=== PATIENT | female | born 1940 | race Caucasian/White ===

== ENCOUNTER 2020-04-14 14:21 | Outpatient (CLI) | payer MEDICARE, OTHER ==
--- NOTE | 2020-04-14 15:03 | ULT ---
EXAM: Left lower extremity venous Doppler HISTORY: Reported history of chronic DVT. Patient was told she was positive for DVT in October 2019. COMPARISON: None available. FINDINGS: Grayscale, color-flow, Doppler evaluation, spectral analysis of the left lower extremity venous struc tures is performed with 2-D imaging. The left common femoral, superficial femoral, popliteal, posterior tibial, proximal greater saphenous and profunda femoral veins are imaged. There is normal luminal compressibility, flow, and augmentation in the visualized deep venous structu res of the left lower extremity. IMPRESSION: No evidence of a deep vein thrombosis in the visualized deep venous structures left lower extremity.
== END 2020-04-14 14:22 | disposition home or self-care (01) ==
LOC: BICULT 14:21
PROVIDERS: ATTEND Family Medicine
DX: M79.605 Pain in left leg (principal); Q61.3 Polycystic kidney, unspecified

== ENCOUNTER 2020-07-03 08:58 | Outpatient (CLI) | payer MEDICARE | END 2020-07-03 08:59 | disposition home or self-care (01) | LOC: BICCT 08:58 | PROVIDERS: ATTEND Urology | DX: Q61.3 Polycystic kidney, unspecified (principal); N13.5 Crossing vessel and stricture of ureter without hydronephrosis; N20.0 Calculus of kidney; R82.71 Bacteriuria; K43.9 Ventral hernia without obstruction or gangrene; K57.30 Diverticulosis of large intestine without perforation or abscess without bleeding; Z98.890 Other specified postprocedural states | CPT/HCPCS: 36415; 74176; 80048 ==

== ENCOUNTER 2020-10-16 08:30 | Outpatient (CLI) | payer MEDICARE, OTHER | END 2020-10-16 08:31 | disposition home or self-care (01) | LOC: BICULT 08:30 | PROVIDERS: ATTEND Urology | DX: N28.1 Cyst of kidney, acquired (principal); Q61.3 Polycystic kidney, unspecified; N13.5 Crossing vessel and stricture of ureter without hydronephrosis | CPT/HCPCS: 74018; 76770 ==

== ENCOUNTER 2020-12-25 09:29 | Outpatient (CLI) | payer MEDICARE | END 2020-12-25 09:30 | disposition home or self-care (01) | LOC: BICMAMMO 09:29 | PROVIDERS: ATTEND Family Medicine | DX: Z12.31 Encounter for screening mammogram for malignant neoplasm of breast (principal); Z80.3 Family history of malignant neoplasm of breast | CPT/HCPCS: 77063; 77067 ==

== ENCOUNTER 2021-09-21 09:30 | Inpatient (IN) | payer MEDICARE ==
[2021-09-21 10:39] LABS: Hemoglobin 14.1 g/dL (12.0-16.0); Mean Corpuscular HGB CONC 31.7 g/dL (32.0-36.0); Mean Corpuscular Volume 97.9 fL (78.0-98.0); Mean Platelet Volume 9.3 fL (7.4-10.4); Platelet Count 164 thou/uL (130-400); RBC Distribution Width 12.3 % (11.5-14.5); Red Blood Cell (RBC) Count 4.54 mill/uL (4.20-5.40); White Blood Cell (WBC) Count 18.5 thou/uL (4.8-10.8)
[2021-09-21 10:55] LABS: ALT (SGPT) 41 U/L (8-55); AST (SGOT) 82 U/L (5-34); Albumin 3.6 g/dL (3.4-4.8); Alkaline Phosphatase 59 U/L (40-110); Anion Gap 15 mmol/L (10-20); BUN (Urea Nitrogen) 39 mg/dL (9.8-20.1); Bilirubin, Total 0.9 mg/dL (0.2-1.2); Calc. Creatinine Clearance 0 mL/min (70-130); Calcium 9.2 mg/dL (7.8-10.44); Carbon Dioxide 23 mmol/L (23-31); Chloride 104 mmol/L (98-107); Globulin 3.6 g/dL (2.4-3.5); Glucose 165 mg/dL (83-110); Potassium 4.4 mmol/L (3.5-5.1); Protein, Total 7.2 g/dL (5.8-8.1); Sodium 138 mmol/L (136-145)
[2021-09-21 11:03] LABS: Band 57 % (5-11); Lymphocytes 3 % (21-51); MDiff Complete? YES; Metamyelocyte 3 % (0-0); Monocytes 3 % (0-10); Neutrophil 34 % (42-75); Platelet Morphology Comment Appears Adequate; Polychromasia SLIGHT = 2-3 cells (100X) (0-2/hpf); Reflex for Review?? YES
[2021-09-21] MEDS ORDERED: cefTRIAXone\\ROCEPHIN 2 GM VIAL ONE (13:06)
[2021-09-21] MEDS ORDERED: Vancomycin 1.5 GRAM/300 ML BAG 1.5 GM in Premix Bag 1 BAG IVPB SCH (13:30)
[2021-09-21 13:41] LABS: Bacteria/HPF 4+ HPF (None Seen); Bilirubin Negative (Negative); Blood, Urine 3+ (Negative); Clarity Turbid (Clear); Glucose, Urine (Dipstick) Normal (Negative); Ketone, Urine Negative (Negative); Leukocyte 250 Leu/uL (Negative); Nitrite 2+ (Negative); Protein, Urine (Dipstick) 70 mg/dL (Neg-Trace); Specific Gravity, Urine 1.022 (1.002-1.036); Squamous Epithelial 0-3 HPF (0-3); Urobilinogen Normal mg/dL (Less than 2); WBC/HPF 21-50 HPF (0-3); pH, Urine 5.5 (5.0-9.0)
[2021-09-21 14:02] LABS: Troponin I 3.857 ng/mL (< 0.028)
[2021-09-21] MEDS ORDERED: Nitroglycerin 0.4 MG TAB (25 Tab Bottle) SL PRN (14:16)
[2021-09-21] MEDS ORDERED: Aspirin Chewable 81 MG TAB ONE (14:22)
[2021-09-21] MEDS ORDERED: Calcium Carbonate 500 MG ChewTAB PO PRN (14:23)
[2021-09-21] MEDS ORDERED: Bisacodyl 10 MG SUPP PR PRN (14:23)
[2021-09-21] MEDS ORDERED: Senokot S 8.6-50 MG TAB PO PRN (14:23)
[2021-09-21] MEDS ORDERED: Ondansetron PF 4 MG/2 ML Vial IVP PRN (14:23)
[2021-09-21] MEDS ORDERED: Ondansetron ODT 4 MG TAB PO PRN (14:23)
[2021-09-21] MEDS ORDERED: Sodium Chloride 0.9% 1,000 ML IV SCH (14:30)
[2021-09-21] MEDS ORDERED: Vancomycin 1 GM in Premix Bag 1 BAG IVPB SCH (14:30)
[2021-09-21 15:35] LABS: Critical Call Chem Troponin I RESULT DECREASING
[2021-09-21 15:55] LABS: CKMB 10.6 ng/mL (0-6.6)
[2021-09-21] MEDS ORDERED: Enoxaparin Sodium 80 MG/0.8 ML SYRINGE ONE (15:59)
[2021-09-21 16:40] LABS: SARS-CoV-2 NAA Rapid Test Not Detected (NotDetected)
[2021-09-21] MEDS: Cefepime 1 GM in Sodium Chloride 0.9% 100 ML IVPB SCH (17:59)
[2021-09-21 18:16] LABS: Critical Call Chem Troponin I RESULT DECREASING
[2021-09-21] MEDS: Enoxaparin Sodium 30 MG/0.3 ML SYRINGE SC SCH (20:25)
[2021-09-21] MEDS: guaiFENesin ER 600 MG TAB PO SCH (20:25)
[2021-09-21] MEDS ORDERED: Enoxaparin Sodium 40 MG/0.4 ML SYRINGE SC SCH (21:00)
[2021-09-22] MEDS: Cefepime 1 GM in Sodium Chloride 0.9% 100 ML IVPB SCH ×2 (04:12→16:16)
[2021-09-22 04:22] LABS: ALT (SGPT) 42 U/L (8-55); AST (SGOT) 75 U/L (5-34); Alkaline Phosphatase 58 U/L (40-110); Anion Gap 12 mmol/L (10-20); BUN (Urea Nitrogen) 39 mg/dL (9.8-20.1); Bilirubin, Total 0.3 mg/dL (0.2-1.2); Calc. Creatinine Clearance 44 mL/min (70-130); Calcium 8.7 mg/dL (7.8-10.44); Carbon Dioxide 22 mmol/L (23-31); Chloride 108 mmol/L (98-107); Globulin 3.1 g/dL (2.4-3.5); Glucose 125 mg/dL (83-110); Potassium 4.3 mmol/L (3.5-5.1); Protein, Total 6.1 g/dL (5.8-8.1); Sodium 138 mmol/L (136-145)
[2021-09-22 04:57] LABS: Band 51 % (5-11); Hemoglobin 13.2 g/dL (12.0-16.0); Lymphocytes 2 % (21-51); MDiff Complete? YES; Mean Corpuscular HGB CONC 31.7 g/dL (32.0-36.0); Mean Corpuscular Hemoglobin 31.4 pg (27.0-31.0); Mean Platelet Volume 9.6 fL (7.4-10.4); Monocytes 5 % (0-10); Neutrophil 42 % (42-75); Platelet Count 147 thou/uL (130-400); Platelet Morphology Comment Appears Adequate; RBC Distribution Width 12.6 % (11.5-14.5); RBC Morphology Normal; Red Blood Cell (RBC) Count 4.21 mill/uL (4.20-5.40); White Blood Cell (WBC) Count 15.6 thou/uL (4.8-10.8)
[2021-09-22 06:15] LABS: Legionella Urinary Ag Negative (Negative); Strep pneumo Urine Ag NEGATIVE (NEGATIVE)
[2021-09-22] MEDS: Aspirin 81 mg Enteric Coated Tablet PO SCH (08:56)
[2021-09-22] MEDS: guaiFENesin ER 600 MG TAB PO SCH ×2 (08:56→20:19)
[2021-09-22] MEDS: Famotidine 20 MG TAB PO SCH (08:56)
[2021-09-22] MEDS: Saccharomyces boulardii 250 MG CAP PO SCH (08:56)
[2021-09-22] MEDS ORDERED: Aspirin 325 mg Enteric Coated Tablet PO SCH (09:00)
[2021-09-22] MEDS ORDERED: Vancomycin 1 GM in Premix Bag 1 BAG IVPB SCH (15:00)
[2021-09-22] MEDS: Atorvastatin Calcium 40 MG TAB PO SCH (20:19)
[2021-09-22] MEDS: Enoxaparin Sodium 30 MG/0.3 ML SYRINGE SC SCH (20:19)
[2021-09-22] MEDS: Acetaminophen 325 MG TAB PO PRN (20:19)
[2021-09-23] MEDS: Cefepime 1 GM in Sodium Chloride 0.9% 100 ML IVPB SCH (03:50)
[2021-09-23 04:22] LABS: #Eosinphils 0.2 thou/uL (0.0-0.7); #Lymphocytes 1.1 thou/uL (1.20-3.40); #Monocytes 0.8 thou/uL (0.11-0.59); #Neutrophils 8.6 thou/uL (1.40-6.50); %Lymphocytes 10.5 % (21.0-51.0); %Monocytes 7.2 % (0.0-10.0); %Neutrophils 80.3 % (42.0-75.0); Hemoglobin 13.1 g/dL (12.0-16.0); Mean Corpuscular HGB CONC 32.2 g/dL (32.0-36.0); Mean Corpuscular Hemoglobin 30.6 pg (27.0-31.0); Platelet Count 129 thou/uL (130-400); RBC Distribution Width 12.6 % (11.5-14.5); Red Blood Cell (RBC) Count 4.27 mill/uL (4.20-5.40); White Blood Cell (WBC) Count 10.7 thou/uL (4.8-10.8)
[2021-09-23 04:44] LABS: ALT (SGPT) 160 U/L (8-55); AST (SGOT) 165 U/L (5-34); Albumin 2.9 g/dL (3.4-4.8); Alkaline Phosphatase 67 U/L (40-110); Anion Gap 13 mmol/L (10-20); BUN (Urea Nitrogen) 31 mg/dL (9.8-20.1); Bilirubin, Total 0.4 mg/dL (0.2-1.2); Calc. Creatinine Clearance 52 mL/min (70-130); Calcium 8.5 mg/dL (7.8-10.44); Carbon Dioxide 21 mmol/L (23-31); Chloride 108 mmol/L (98-107); Globulin 3.1 g/dL (2.4-3.5); Glucose 109 mg/dL (83-110); Potassium 4.1 mmol/L (3.5-5.1); Sodium 138 mmol/L (136-145)
[2021-09-23] MEDS ORDERED: EPINEPHrine 1 MG/10 ML Abboject SYRINGE ONE (07:24)
[2021-09-23] MEDS: guaiFENesin ER 600 MG TAB PO SCH ×2 (08:31→21:39)
[2021-09-23] MEDS: Famotidine 20 MG TAB PO SCH (08:31)
[2021-09-23] MEDS: Aspirin 81 mg Enteric Coated Tablet PO SCH (08:32)
[2021-09-23] MEDS: Saccharomyces boulardii 250 MG CAP PO SCH (08:32)
[2021-09-23] MEDS: Cholecalciferol 1,000 UNITS (25 MCG) TAB PO SCH (08:32)
[2021-09-23] MEDS ORDERED: Meropenem 1 GM in Sodium Chloride 0.9% 100 ML IVPB SCH (10:30)
[2021-09-23 14:17] LABS: Vancomycin, Trough 10.8 ug/mL
[2021-09-23] MEDS: Vancomycin 1.5 GRAM/300 ML BAG 1.5 GM in Premix Bag 1 BAG IVPB SCH (14:54)
[2021-09-23] MEDS: Atorvastatin Calcium 40 MG TAB PO SCH (21:39)
[2021-09-23] MEDS: Meropenem 1 GM in Sodium Chloride 0.9% 100 ML IVPB SCH (21:39)
[2021-09-23] MEDS: Enoxaparin Sodium 40 MG/0.4 ML SYRINGE SC SCH (21:39)
[2021-09-24 04:57] LABS: ALT (SGPT) 239 U/L (8-55); AST (SGOT) 166 U/L (5-34); Alkaline Phosphatase 75 U/L (40-110); Anion Gap 13 mmol/L (10-20); BUN (Urea Nitrogen) 22 mg/dL (9.8-20.1); Bilirubin, Total 0.5 mg/dL (0.2-1.2); Calc. Creatinine Clearance 62 mL/min (70-130); Calcium 8.7 mg/dL (7.8-10.44); Carbon Dioxide 22 mmol/L (23-31); Chloride 108 mmol/L (98-107); Globulin 3.1 g/dL (2.4-3.5); Glucose 110 mg/dL (83-110); Potassium 3.8 mmol/L (3.5-5.1); Protein, Total 6.1 g/dL (5.8-8.1); Sodium 139 mmol/L (136-145)
[2021-09-24 05:24] LABS: Band 19 % (5-11); Eosinophils 5 % (0-10); Lymphocytes 12 % (21-51); MDiff Complete? YES; Mean Corpuscular HGB CONC 32.7 g/dL (32.0-36.0); Mean Corpuscular Hemoglobin 31.1 pg (27.0-31.0); Mean Corpuscular Volume 95.1 fL (78.0-98.0); Mean Platelet Volume 9.1 fL (7.4-10.4); Monocytes 13 % (0-10); Neutrophil 51 % (42-75); Platelet Count 171 thou/uL (130-400); RBC Distribution Width 12.6 % (11.5-14.5); Red Blood Cell (RBC) Count 4.18 mill/uL (4.20-5.40); White Blood Cell (WBC) Count 9.2 thou/uL (4.8-10.8)
[2021-09-24] MEDS: guaiFENesin ER 600 MG TAB PO SCH ×2 (10:14→21:31)
[2021-09-24] MEDS: Famotidine 20 MG TAB PO SCH (10:14)
[2021-09-24] MEDS: Aspirin 81 mg Enteric Coated Tablet PO SCH (10:14)
[2021-09-24] MEDS: Saccharomyces boulardii 250 MG CAP PO SCH (10:15)
[2021-09-24] MEDS: Meropenem 1 GM in Sodium Chloride 0.9% 100 ML IVPB SCH ×2 (10:15→21:32)
[2021-09-24] MEDS: Cholecalciferol 1,000 UNITS (25 MCG) TAB PO SCH (10:15)
[2021-09-24] MEDS: Vancomycin 1.5 GRAM/300 ML BAG 1.5 GM in Premix Bag 1 BAG IVPB SCH (14:36)
[2021-09-24] MEDS: Enoxaparin Sodium 40 MG/0.4 ML SYRINGE SC SCH (21:31)
[2021-09-25 04:45] LABS: Mean Corpuscular HGB CONC 31.8 g/dL (32.0-36.0); Mean Corpuscular Hemoglobin 31.2 pg (27.0-31.0); Mean Corpuscular Volume 98.3 fL (78.0-98.0); Mean Platelet Volume 8.6 fL (7.4-10.4); Platelet Count 200 thou/uL (130-400); RBC Distribution Width 12.4 % (11.5-14.5); Red Blood Cell (RBC) Count 4.17 mill/uL (4.20-5.40); White Blood Cell (WBC) Count 14.8 thou/uL (4.8-10.8)
[2021-09-25 05:07] LABS: Band 14 % (5-11); Eosinophils 3 % (0-10); Lymphocytes 12 % (21-51); MDiff Complete? YES; Metamyelocyte 1 % (0-0); Monocytes 5 % (0-10); Myelocyte 1 % (0-0); Neutrophil 64 % (42-75)
[2021-09-25 05:35] LABS: ALT (SGPT) 199 U/L (8-55); AST (SGOT) 109 U/L (5-34); Albumin 3.1 g/dL (3.4-4.8); Alkaline Phosphatase 86 U/L (40-110); Anion Gap 17 mmol/L (10-20); BUN (Urea Nitrogen) 19 mg/dL (9.8-20.1); Bilirubin, Total 0.5 mg/dL (0.2-1.2); Calc. Creatinine Clearance 55 mL/min (70-130); Calcium 8.9 mg/dL (7.8-10.44); Carbon Dioxide 18 mmol/L (23-31); Chloride 109 mmol/L (98-107); Globulin 3.9 g/dL (2.4-3.5); Glucose 125 mg/dL (83-110); Potassium 4.7 mmol/L (3.5-5.1); Sodium 139 mmol/L (136-145)
[2021-09-25] MEDS: Meropenem 1 GM in Sodium Chloride 0.9% 100 ML IVPB SCH ×2 (09:38→21:34)
[2021-09-25] MEDS: Cholecalciferol 1,000 UNITS (25 MCG) TAB PO SCH (09:39)
[2021-09-25] MEDS: Famotidine 20 MG TAB PO SCH (09:39)
[2021-09-25] MEDS: Aspirin 81 mg Enteric Coated Tablet PO SCH (09:39)
[2021-09-25] MEDS: guaiFENesin ER 600 MG TAB PO SCH ×2 (09:39→20:11)
[2021-09-25] MEDS: Saccharomyces boulardii 250 MG CAP PO SCH (09:39)
[2021-09-25] MEDS: Furosemide 20 MG TAB PO SCH (09:40)
[2021-09-25 14:18] LABS: Vancomycin, Trough 16.6 ug/mL
[2021-09-25] MEDS: Vancomycin 1.5 GRAM/300 ML BAG 1.5 GM in Premix Bag 1 BAG IVPB SCH (16:07)
[2021-09-25] MEDS ORDERED: Electrolyte Replacement Protocol FS PRN (18:45)
[2021-09-25] MEDS ORDERED: Electrolyte Replacement Protocol 1 EACH FS SCH (18:45)
[2021-09-25] MEDS ORDERED: Magnesium 2 GM/50 ML(in water) 2 GM in Premix Bag 1 BAG IVPB SCH (19:00)
[2021-09-25] MEDS: Enoxaparin Sodium 40 MG/0.4 ML SYRINGE SC SCH (20:11)
[2021-09-25] MEDS: GUAIFENESIN SF SOLN 200 MG/10 ML UDCUP PO PRN (20:11)
[2021-09-25] MEDS ORDERED: guaiFENesin ER 600 MG TAB PO SCH (21:00)
[2021-09-26 05:06] LABS: ALT (SGPT) 162 U/L (8-55); AST (SGOT) 70 U/L (5-34); Alkaline Phosphatase 84 U/L (40-110); Anion Gap 12 mmol/L (10-20); BUN (Urea Nitrogen) 17 mg/dL (9.8-20.1); Bilirubin, Total 0.5 mg/dL (0.2-1.2); CRP (Inflammatory) 9.99 mg/dL (= or < 0.5); Calc. Creatinine Clearance 53 mL/min (70-130); Calcium 8.4 mg/dL (7.8-10.44); Carbon Dioxide 23 mmol/L (23-31); Chloride 109 mmol/L (98-107); Globulin 3.1 g/dL (2.4-3.5); Glucose 134 mg/dL (83-110); Phosphorus 2.3 mg/dL (2.3-4.7); Protein, Total 6.1 g/dL (5.8-8.1); Sodium 140 mmol/L (136-145)
[2021-09-26] MEDS ORDERED: Magnesium 2 GM/50 ML(in water) 2 GM in Premix Bag 1 BAG IVPB SCH (06:00)
[2021-09-26 06:11] LABS: Band 16 % (5-11); Eosinophils 3 % (0-10); Hemoglobin 12.2 g/dL (12.0-16.0); Lymphocytes 9 % (21-51); MDiff Complete? YES; Mean Corpuscular HGB CONC 32.7 g/dL (32.0-36.0); Mean Corpuscular Volume 98.1 fL (78.0-98.0); Mean Platelet Volume 8.9 fL (7.4-10.4); Monocytes 7 % (0-10); Neutrophil 65 % (42-75); Platelet Count 201 thou/uL (130-400); RBC Distribution Width 12.6 % (11.5-14.5); Red Blood Cell (RBC) Count 3.82 mill/uL (4.20-5.40); White Blood Cell (WBC) Count 16.7 thou/uL (4.8-10.8)
[2021-09-26] MEDS: Meropenem 1 GM in Sodium Chloride 0.9% 100 ML IVPB SCH ×2 (09:56→20:43)
[2021-09-26] MEDS: GUAIFENESIN SF SOLN 200 MG/10 ML UDCUP PO PRN (09:57)
[2021-09-26] MEDS: Furosemide 20 MG TAB PO SCH (09:58)
[2021-09-26] MEDS: Aspirin 81 mg Enteric Coated Tablet PO SCH (09:58)
[2021-09-26] MEDS: guaiFENesin ER 600 MG TAB PO SCH ×2 (09:58→20:43)
[2021-09-26] MEDS: Cholecalciferol 1,000 UNITS (25 MCG) TAB PO SCH (09:58)
[2021-09-26] MEDS: Saccharomyces boulardii 250 MG CAP PO SCH (09:59)
[2021-09-26] MEDS: Famotidine 20 MG TAB PO SCH (09:59)
[2021-09-26] MEDS ORDERED: Cepastat Lozenges 1 LOZ PO PRN (12:33)
[2021-09-26] MEDS ORDERED: GUAIFENESIN SF SOLN 200 MG/10 ML UDCUP PO PRN (12:34)
[2021-09-26] MEDS: Benzonatate 100 MG CAP PO PRN ×2 (13:42→20:43)
[2021-09-26] MEDS: Acetaminophen 325 MG TAB PO PRN (20:43)
[2021-09-26] MEDS: Enoxaparin Sodium 40 MG/0.4 ML SYRINGE SC SCH (20:43)
[2021-09-27] MEDS: Famotidine 20 MG TAB PO SCH (07:44)
[2021-09-27] MEDS: Cholecalciferol 1,000 UNITS (25 MCG) TAB PO SCH (07:44)
[2021-09-27] MEDS: Aspirin 81 mg Enteric Coated Tablet PO SCH (07:44)
[2021-09-27] MEDS: Saccharomyces boulardii 250 MG CAP PO SCH (07:45)
[2021-09-27] MEDS: guaiFENesin ER 600 MG TAB PO SCH ×2 (07:45→22:06)
[2021-09-27] MEDS: Furosemide 20 MG TAB PO SCH (07:45)
[2021-09-27] MEDS: Meropenem 1 GM in Sodium Chloride 0.9% 100 ML IVPB SCH ×3 (07:54→22:06)
[2021-09-27] MEDS: Enoxaparin Sodium 40 MG/0.4 ML SYRINGE SC SCH (22:06)
[2021-09-27] MEDS: Atorvastatin Calcium 40 MG TAB PO SCH (22:06)
[2021-09-28] MEDS: Meropenem 1 GM in Sodium Chloride 0.9% 100 ML IVPB SCH ×2 (05:13→15:45)
[2021-09-28] MEDS: Cholecalciferol 1,000 UNITS (25 MCG) TAB PO SCH (09:10)
[2021-09-28] MEDS: Aspirin 81 mg Enteric Coated Tablet PO SCH (09:10)
[2021-09-28] MEDS: Famotidine 20 MG TAB PO SCH (09:11)
[2021-09-28] MEDS: Furosemide 20 MG TAB PO SCH (09:12)
[2021-09-28] MEDS: guaiFENesin ER 600 MG TAB PO SCH ×2 (09:12→21:46)
[2021-09-28] MEDS: Saccharomyces boulardii 250 MG CAP PO SCH (09:13)
[2021-09-28] MEDS: Acetaminophen 325 MG TAB PO PRN (09:13)
[2021-09-28 10:00] LABS: Hemoglobin 13.2 g/dL (12.0-16.0); Mean Corpuscular HGB CONC 33.2 g/dL (32.0-36.0); Mean Corpuscular Hemoglobin 31.6 pg (27.0-31.0); Mean Corpuscular Volume 95.4 fL (78.0-98.0); Mean Platelet Volume 7.8 fL (7.4-10.4); Platelet Count 294 thou/uL (130-400); RBC Distribution Width 12.5 % (11.5-14.5); Red Blood Cell (RBC) Count 4.19 mill/uL (4.20-5.40); White Blood Cell (WBC) Count 20.2 thou/uL (4.8-10.8)
[2021-09-28 10:02] LABS: MDiff Complete? YES
[2021-09-28 10:18] LABS: Anion Gap 16 mmol/L (10-20); BUN (Urea Nitrogen) 21 mg/dL (9.8-20.1); Calc. Creatinine Clearance 46 mL/min (70-130); Carbon Dioxide 24 mmol/L (23-31); Chloride 101 mmol/L (98-107); Potassium 4.2 mmol/L (3.5-5.1); Sodium 137 mmol/L (136-145)
[2021-09-28 10:19] LABS: ALT (SGPT) 110 U/L (8-55); AST (SGOT) 39 U/L (5-34); Albumin 3.3 g/dL (3.4-4.8); Alkaline Phosphatase 93 U/L (40-110); Calcium 9.4 mg/dL (7.8-10.44); Globulin 3.9 g/dL (2.4-3.5); Glucose 110 mg/dL (83-110); Magnesium 1.9 mg/dL (1.6-2.6); Protein, Total 7.2 g/dL (5.8-8.1)
[2021-09-28 10:30] LABS: Band 9 % (5-11); Eosinophils 3 % (0-10); Lymphocytes 13 % (21-51); Monocytes 3 % (0-10); Neutrophil 72 % (42-75); Platelet Morphology Comment Appears Adequate; Polychromasia SLIGHT = 2-3 cells (100X) (0-2/hpf)
[2021-09-28] MEDS ORDERED: Magnesium 2 GM/50 ML(in water) 2 GM in Premix Bag 1 BAG IVPB SCH (12:00)
[2021-09-28] MEDS: Atorvastatin Calcium 40 MG TAB PO SCH (21:46)
[2021-09-28] MEDS: Enoxaparin Sodium 40 MG/0.4 ML SYRINGE SC SCH (21:46)
[2021-09-29] MEDS: Meropenem 1 GM in Sodium Chloride 0.9% 100 ML IVPB SCH ×2 (03:17→17:09)
[2021-09-29] MEDS: Benzonatate 100 MG CAP PO PRN ×2 (03:19→20:23)
[2021-09-29] MEDS: Acetaminophen 325 MG TAB PO PRN ×2 (03:19→20:24)
[2021-09-29] MEDS: guaiFENesin ER 600 MG TAB PO SCH ×2 (09:45→20:23)
[2021-09-29] MEDS: Famotidine 20 MG TAB PO SCH (09:45)
[2021-09-29] MEDS: Aspirin 81 mg Enteric Coated Tablet PO SCH (09:45)
[2021-09-29] MEDS: Furosemide 20 MG TAB PO SCH (09:45)
[2021-09-29] MEDS: Cholecalciferol 1,000 UNITS (25 MCG) TAB PO SCH (09:45)
[2021-09-29] MEDS: Saccharomyces boulardii 250 MG CAP PO SCH (09:46)
[2021-09-29 11:50] LABS: #Eosinphils 0.3 thou/uL (0.0-0.7); #Lymphocytes 1.3 thou/uL (1.20-3.40); #Monocytes 1.4 thou/uL (0.11-0.59); #Neutrophils 14.5 thou/uL (1.40-6.50); %Basophils 0.2 % (0.0-1.0); %Eosinophils 1.5 % (0.0-10.0); %Lymphocytes 7.6 % (21.0-51.0); %Monocytes 7.9 % (0.0-10.0); %Neutrophils 82.8 % (42.0-75.0); Hemoglobin 12.9 g/dL (12.0-16.0); Mean Corpuscular HGB CONC 32.9 g/dL (32.0-36.0); Mean Corpuscular Hemoglobin 31.9 pg (27.0-31.0); Mean Platelet Volume 8.3 fL (7.4-10.4); Platelet Count 270 thou/uL (130-400); RBC Distribution Width 12.4 % (11.5-14.5); Red Blood Cell (RBC) Count 4.05 mill/uL (4.20-5.40); White Blood Cell (WBC) Count 17.5 thou/uL (4.8-10.8)
[2021-09-29 12:14] LABS: ALT (SGPT) 86 U/L (8-55); AST (SGOT) 30 U/L (5-34); Albumin 3.1 g/dL (3.4-4.8); Alkaline Phosphatase 83 U/L (40-110); Anion Gap 13 mmol/L (10-20); BUN (Urea Nitrogen) 24 mg/dL (9.8-20.1); Bilirubin, Total 0.6 mg/dL (0.2-1.2); Calc. Creatinine Clearance 44 mL/min (70-130); Calcium 9.3 mg/dL (7.8-10.44); Carbon Dioxide 26 mmol/L (23-31); Chloride 103 mmol/L (98-107); Globulin 3.9 g/dL (2.4-3.5); Glucose 105 mg/dL (83-110); Potassium 4.9 mmol/L (3.5-5.1); Sodium 137 mmol/L (136-145)
[2021-09-29] MEDS: Atorvastatin Calcium 40 MG TAB PO SCH (20:23)
[2021-09-29] MEDS: Enoxaparin Sodium 40 MG/0.4 ML SYRINGE SC SCH (20:24)
[2021-09-30] MEDS: Meropenem 1 GM in Sodium Chloride 0.9% 100 ML IVPB SCH (04:16)
[2021-09-30] MEDS: Saccharomyces boulardii 250 MG CAP PO SCH (09:09)
[2021-09-30] MEDS: Cholecalciferol 1,000 UNITS (25 MCG) TAB PO SCH (09:09)
[2021-09-30] MEDS: Acetaminophen 325 MG TAB PO PRN ×2 (09:10→13:04)
[2021-09-30] MEDS: Aspirin 81 mg Enteric Coated Tablet PO SCH (09:10)
[2021-09-30] MEDS: guaiFENesin ER 600 MG TAB PO SCH (09:11)
[2021-09-30] MEDS ORDERED: Doxycycline 100 MG CAP PO SCH ×2 (10:15→21:00)
[2021-09-30 11:14] VITALS: TEMP 98.5
[2021-09-30 11:54] VITALS: BP 114/59
[2021-09-30 13:56] VITALS: BMI 31.3
== END 2021-09-30 15:35 | DRG 871 ==
LOC: ERS 09:30 → ERHOLD 12:46 → CCU 16:41 → 2NO 09-23 20:17
PROVIDERS: ADMIT Internal Medicine; ATTEND Internal Medicine
DX: A41.9 Sepsis, unspecified organism (principal); Z20.822 Contact with and (suspected) exposure to COVID-19; J96.01 Acute respiratory failure with hypoxia; J18.9 Pneumonia, unspecified organism; J69.0 Pneumonitis due to inhalation of food and vomit; I21.A1 Myocardial infarction type 2; N18.4 Chronic kidney disease, stage 4 (severe); Q61.3 Polycystic kidney, unspecified; N25.81 Secondary hyperparathyroidism of renal origin; I31.3 Pericardial effusion (noninflammatory); I31.4 Cardiac tamponade; N39.0 Urinary tract infection, site not specified; N17.9 Acute kidney failure, unspecified; E86.0 Dehydration; E53.8 Deficiency of other specified B group vitamins; E78.00 Pure hypercholesterolemia, unspecified; I35.0 Nonrheumatic aortic (valve) stenosis; R74.01 Elevation of levels of liver transaminase levels; I12.9 Hypertensive chronic kidney disease with stage 1 through stage 4 chronic kidney disease, or unspecified chronic kidney disease; E66.9 Obesity, unspecified; R13.10 Dysphagia, unspecified; E83.42 Hypomagnesemia; I49.3 Ventricular premature depolarization; Z68.31 Body mass index [BMI] 31.0-31.9, adult; Z79.899 Other long term (current) drug therapy; Z79.82 Long term (current) use of aspirin; Z86.718 Personal history of other venous thrombosis and embolism; Z90.710 Acquired absence of both cervix and uterus; Z98.890 Other specified postprocedural states; Z84.1 Family history of disorders of kidney and ureter
CPT/HCPCS: 36415; 71046; 80053; 80202; 81003; 81015; 82553; 83605; 83735; 83880; 84100; 84484; 85025; 85060; 86140; 87040; 87070; 87077; 87086; 87186; 87205; 87449; 87633; 87804; 87899; 93005; 93306; 94640; 94760; 96372; 96374; 96375; J0692; J0696; J1650; J2185; J3370; J3475; J3490; J7620; U0002; U0003; U0005

== ENCOUNTER 2021-10-21 16:23 | Outpatient (CLI) | payer MEDICARE | END 2021-10-21 16:24 | disposition home or self-care (01) | LOC: BICRAD 16:23 | PROVIDERS: ATTEND Nurse Practitioner Family | DX: S69.92XA Unspecified injury of left wrist, hand and finger(s), initial encounter (principal); M18.12 Unilateral primary osteoarthritis of first carpometacarpal joint, left hand | CPT/HCPCS: 36415; 85025; 87086 ==

== ENCOUNTER 2021-10-27 20:04 | Inpatient (IN) | payer MEDICARE ==
[2021-10-27] MEDS ORDERED: Ibuprofen 800 MG TAB ONE (20:40)
[2021-10-27 20:41] LABS: #Eosinphils 0.2 thou/uL (0.0-0.7); #Lymphocytes 1.2 thou/uL (1.20-3.40); #Monocytes 1.5 thou/uL (0.11-0.59); #Neutrophils 11.7 thou/uL (1.40-6.50); %Basophils 0.3 % (0.0-1.0); %Eosinophils 1.4 % (0.0-10.0); %Lymphocytes 8.3 % (21.0-51.0); %Monocytes 10.2 % (0.0-10.0); %Neutrophils 79.8 % (42.0-75.0); Hemoglobin 10.9 g/dL (12.0-16.0); Mean Corpuscular HGB CONC 31.7 g/dL (32.0-36.0); Mean Corpuscular Hemoglobin 29.6 pg (27.0-31.0); Mean Corpuscular Volume 93.4 fL (78.0-98.0); Platelet Count 212 thou/uL (130-400); RBC Distribution Width 13.1 % (11.5-14.5); Red Blood Cell (RBC) Count 3.69 mill/uL (4.20-5.40); White Blood Cell (WBC) Count 14.6 thou/uL (4.8-10.8)
[2021-10-27 20:54] LABS: Bacteria/HPF None Seen HPF (None Seen); Bilirubin Negative (Negative); Blood, Urine Negative (Negative); Clarity Clear (Clear); Glucose, Urine (Dipstick) Normal (Negative); Ketone, Urine Negative (Negative); Leukocyte 25 Leu/uL (Negative); Nitrite Negative (Negative); Protein, Urine (Dipstick) Negative (Neg-Trace); RBC/HPF 0-3 HPF (0-3); Specific Gravity, Urine 1.017 (1.002-1.036); Squamous Epithelial 0-3 HPF (0-3); Urobilinogen Normal mg/dL (Less than 2); WBC/HPF 0-3 HPF (0-3); pH, Urine 5.5 (5.0-9.0)
[2021-10-27] MEDS ORDERED: Piperacillin/Tazobactam 3.375 GM VIAL ONE (20:57)
[2021-10-27] MEDS ORDERED: Acetaminophen 500 MG TAB ONE (20:57)
[2021-10-27 21:04] LABS: ALT (SGPT) 29 U/L (8-55); AST (SGOT) 27 U/L (5-34); Albumin 3.2 g/dL (3.4-4.8); Alkaline Phosphatase 76 U/L (40-110); Anion Gap 14 mmol/L (10-20); BUN (Urea Nitrogen) 23 mg/dL (9.8-20.1); Bilirubin, Total 0.6 mg/dL (0.2-1.2); Calc. Creatinine Clearance 0 mL/min (70-130); Calcium 8.5 mg/dL (7.8-10.44); Carbon Dioxide 26 mmol/L (23-31); Chloride 104 mmol/L (98-107); Estimated GFR 41; Globulin 3.5 g/dL (2.4-3.5); Glucose 152 mg/dL (83-110); Potassium 4.6 mmol/L (3.5-5.1); Protein, Total 6.7 g/dL (5.8-8.1)
[2021-10-27 21:20] LABS: Sodium 139 mmol/L (136-145)
[2021-10-27] MEDS ORDERED: Vancomycin 1 GM/200 ML BAG ONE (21:53)
[2021-10-27] MEDS ORDERED: Sodium Chloride 0.9% 1,000 ML IV SCH (22:15)
[2021-10-27] MEDS ORDERED: Ondansetron ODT 4 MG TAB SL PRN (22:15)
[2021-10-27] MEDS ORDERED: Ondansetron PF 4 MG/2 ML Vial IVP PRN (22:15)
[2021-10-28 00:07] LABS: Troponin I 0.028 ng/mL (< 0.028)
[2021-10-28 00:09] LABS: SARS-CoV-2 NAA Rapid Test Not Detected (NotDetected)
[2021-10-28] MEDS: Sodium Chloride 0.9% 1,000 ML IV SCH ×4 (00:55→20:40)
[2021-10-28 02:49] LABS: Troponin I 0.042 ng/mL (< 0.028)
[2021-10-28] MEDS: Piperacillin/Tazobactam 3.375 GM in Sodium Chloride 0.9% 100 ML IVPB SCH ×3 (04:48→20:38)
[2021-10-28] MEDS ORDERED: Piperacillin/Tazobactam 3.375 GM in Sodium Chloride 0.9% 100 ML IVPB SCH (05:00)
[2021-10-28] MEDS ORDERED: Dexamethasone 10 MG/ML VIAL SLOW IVP SCH ×2 (05:46→05:59)
[2021-10-28 08:14] LABS: #Basophils 0.1 thou/uL (0.0-0.2); #Eosinphils 0.3 thou/uL (0.0-0.7); #Lymphocytes 1.1 thou/uL (1.20-3.40); #Monocytes 0.6 thou/uL (0.11-0.59); #Neutrophils 6.8 thou/uL (1.40-6.50); %Basophils 0.6 % (0.0-1.0); %Eosinophils 3.7 % (0.0-10.0); %Lymphocytes 12.2 % (21.0-51.0); %Neutrophils 76.5 % (42.0-75.0); Hemoglobin 11.3 g/dL (12.0-16.0); Mean Corpuscular Hemoglobin 30.2 pg (27.0-31.0); Mean Corpuscular Volume 94.5 fL (78.0-98.0); Mean Platelet Volume 8.3 fL (7.4-10.4); Platelet Count 182 thou/uL (130-400); RBC Distribution Width 13.1 % (11.5-14.5); Red Blood Cell (RBC) Count 3.74 mill/uL (4.20-5.40); White Blood Cell (WBC) Count 8.9 thou/uL (4.8-10.8)
[2021-10-28 08:20] LABS: Anion Gap 14 mmol/L (10-20); BUN (Urea Nitrogen) 19 mg/dL (9.8-20.1); Calc. Creatinine Clearance 50 mL/min (70-130); Calcium 8.5 mg/dL (7.8-10.44); Carbon Dioxide 22 mmol/L (23-31); Chloride 110 mmol/L (98-107); Estimated GFR 46; Glucose 89 mg/dL (83-110); Potassium 3.8 mmol/L (3.5-5.1); Sodium 142 mmol/L (136-145)
[2021-10-28] MEDS: Dexamethasone 4 mg/ml Vial SLOW IVP SCH ×3 (08:24→20:08)
[2021-10-28] MEDS ORDERED: levETIRAcetam 500 MG/5 ML VIAL SLOW IVP SCH (12:15)
[2021-10-28] MEDS ORDERED: Enoxaparin Sodium 40 MG/0.4 ML SYRINGE SC SCH (12:15)
[2021-10-28] MEDS: levETIRAcetam 500 MG TAB PO SCH (20:07)
[2021-10-29] MEDS: Dexamethasone 4 mg/ml Vial SLOW IVP SCH ×3 (01:47→11:49)
[2021-10-29] MEDS: Sodium Chloride 0.9% 1,000 ML IV SCH ×3 (05:33→21:00)
[2021-10-29] MEDS: Piperacillin/Tazobactam 3.375 GM in Sodium Chloride 0.9% 100 ML IVPB SCH ×3 (05:33→20:59)
[2021-10-29] MEDS: levETIRAcetam 500 MG TAB PO SCH ×2 (09:37→20:59)
[2021-10-29] MEDS: Enoxaparin Sodium 40 MG/0.4 ML SYRINGE SC SCH (11:17)
[2021-10-29] MEDS: Dexamethasone 4 MG TAB PO SCH ×2 (11:37→18:05)
[2021-10-29] MEDS ORDERED: Acetaminophen 325 MG TAB PO PRN (14:35)
[2021-10-29] MEDS ORDERED: Acetaminophen/Codeine 30-300mg Tablet PO PRN (14:35)
[2021-10-30] MEDS: Dexamethasone 4 MG TAB PO SCH ×4 (00:37→17:13)
[2021-10-30] MEDS: Piperacillin/Tazobactam 3.375 GM in Sodium Chloride 0.9% 100 ML IVPB SCH ×3 (05:07→20:45)
[2021-10-30] MEDS: Sodium Chloride 0.9% 1,000 ML IV SCH ×3 (05:10→20:47)
[2021-10-30] MEDS: Enoxaparin Sodium 40 MG/0.4 ML SYRINGE SC SCH (07:55)
[2021-10-30] MEDS: levETIRAcetam 500 MG TAB PO SCH ×2 (07:56→20:45)
[2021-10-30] MEDS ORDERED: Regadenoson 0.4 MG/5 ML SYRINGE ONE (09:51)
[2021-10-31] MEDS: Dexamethasone 4 MG TAB PO SCH ×5 (02:23→23:16)
[2021-10-31] MEDS: Sodium Chloride 0.9% 1,000 ML IV SCH (03:54)
[2021-10-31] MEDS: Piperacillin/Tazobactam 3.375 GM in Sodium Chloride 0.9% 100 ML IVPB SCH (04:49)
[2021-10-31] MEDS: levETIRAcetam 500 MG TAB PO SCH ×3 (08:22→21:07)
[2021-10-31] MEDS: Enoxaparin Sodium 40 MG/0.4 ML SYRINGE SC SCH ×2 (08:22→10:42)
[2021-10-31 12:19] LABS: %Eosinophils 0.2 % (0.0-10.0); Platelet Count 247 thou/uL (130-400)
[2021-10-31 12:24] LABS: #Lymphocytes 1.3 thou/uL (1.20-3.40); #Monocytes 0.6 thou/uL (0.11-0.59); #Neutrophils 13.3 thou/uL (1.40-6.50); %Lymphocytes 8.5 % (21.0-51.0); %Monocytes 3.9 % (0.0-10.0); %Neutrophils 87.4 % (42.0-75.0); Hemoglobin 12.8 g/dL (12.0-16.0); Mean Corpuscular HGB CONC 31.2 g/dL (32.0-36.0); Mean Corpuscular Hemoglobin 29.7 pg (27.0-31.0); Mean Corpuscular Volume 95.1 fL (78.0-98.0); Mean Platelet Volume 8.8 fL (7.4-10.4); RBC Distribution Width 13.2 % (11.5-14.5); Red Blood Cell (RBC) Count 4.31 mill/uL (4.20-5.40); White Blood Cell (WBC) Count 15.2 thou/uL (4.8-10.8)
[2021-10-31 12:32] LABS: INR-International Normal Ratio 1.2; PTT 26.7 sec (22.9-36.1); Prothrombin Time 14.9 sec (12.0-14.7)
[2021-10-31 12:41] LABS: ALT (SGPT) 24 U/L (8-55); AST (SGOT) 22 U/L (5-34); Albumin 3.3 g/dL (3.4-4.8); Alkaline Phosphatase 58 U/L (40-110); Anion Gap 16 mmol/L (10-20); BUN (Urea Nitrogen) 24 mg/dL (9.8-20.1); Bilirubin, Total 0.3 mg/dL (0.2-1.2); Calc. Creatinine Clearance 48 mL/min (70-130); Calcium 9.1 mg/dL (7.8-10.44); Carbon Dioxide 22 mmol/L (23-31); Chloride 108 mmol/L (98-107); Estimated GFR 44; Globulin 3.7 g/dL (2.4-3.5); Glucose 143 mg/dL (83-110); Potassium 4.1 mmol/L (3.5-5.1); Sodium 142 mmol/L (136-145)
[2021-10-31] MEDS: Ciprofloxacin 500 MG TAB PO SCH (21:07)
[2021-11-01] MEDS: Dexamethasone 4 MG TAB PO SCH ×4 (05:29→22:49)
[2021-11-01] MEDS: Ciprofloxacin 500 MG TAB PO SCH ×2 (05:29→20:19)
[2021-11-01] MEDS ORDERED: fentaNYL Citrate/PF 100 MCG/2 ML SYRINGE ONE (06:37)
[2021-11-01] MEDS ORDERED: levETIRAcetam 500 MG/5 ML VIAL ONE (06:37)
[2021-11-01] MEDS ORDERED: Bacitracin Zinc Ointment 30 gm TUBE ONE (07:05)
[2021-11-01] MEDS ORDERED: Thrombin 5000 UNITS/5 ML VIAL ONE (07:05)
[2021-11-01] MEDS ORDERED: CEFAZOLIN 2 GM VIAL ONE (07:42)
[2021-11-01] MEDS ORDERED: Sodium Chloride 0.9% 100 ML ONE (07:42)
[2021-11-01] MEDS ORDERED: Propofol 1,000 MG/100 ML VIAL IV ONE (07:44)
[2021-11-01] MEDS ORDERED: Ondansetron PF 4 MG/2 ML Vial ONE (08:26)
[2021-11-01] MEDS ORDERED: PROPOFOL 200 MG/20 ML VIAL ONE (08:26)
[2021-11-01] MEDS ORDERED: Lidocaine 1% PF 5 ML VIAL ONE ×2 (08:26)
[2021-11-01] MEDS ORDERED: Dexamethasone 20 MG/5 ML VIAL ONE (08:26)
[2021-11-01] MEDS ORDERED: Rocuronium Bromide 10 MG/ML (10ML VIAL) ONE (08:26)
[2021-11-01] MEDS ORDERED: Phenylephrine 10 MG/ML VIAL ONE (08:26)
[2021-11-01] MEDS ORDERED: Lidocaine 1% w/Epinephrine 1:100K 20 ML VIAL ONE (09:09)
[2021-11-01] MEDS ORDERED: SUGAMMADEX SODIUM 200 MG/2 ML VIAL ONE (10:59)
[2021-11-01] MEDS ORDERED: Promethazine HCl 12.5 MG in Sodium Chloride 0.9% 50 ML IVPB PRN (11:16)
[2021-11-01] MEDS ORDERED: Morphine 2 MG/ML VIAL SLOW IVP PRN (11:17)
[2021-11-01] MEDS ORDERED: Promethazine HCl 25 MG/ML VIAL IM PRN (11:25)
[2021-11-01] MEDS ORDERED: HYDROmorphone 2 MG/ML VIAL SLOW IVP PRN (11:25)
[2021-11-01] MEDS ORDERED: Ondansetron HCl/PF 4 MG/2 ML Vial IVP PRN (11:25)
[2021-11-01] MEDS ORDERED: Promethazine HCl 25 MG/ML VIAL IVPB PRN (11:25)
[2021-11-01] MEDS ORDERED: Morphine Sulfate 2 MG/ML SYRINGE SLOW IVP PRN (11:25)
[2021-11-01] MEDS ORDERED: PACU-Morphine 4MG/ML VIAL SLOW IVP PRN (11:25)
[2021-11-01] MEDS ORDERED: CEFAZOLIN 1 GM VIAL SLOW IVP SCH (14:00)
[2021-11-01] MEDS: Enoxaparin Sodium 40 MG/0.4 ML SYRINGE SC SCH (15:06)
[2021-11-01] MEDS: levETIRAcetam 500 MG TAB PO SCH ×2 (15:06→20:18)
[2021-11-01] MEDS ORDERED: Fentanyl 100 MCG/2 ML VIAL ONE (15:41)
[2021-11-01] MEDS: HYDROcodone/Acetaminophen 7.5/325 mg Tablet PO PRN (16:56)
[2021-11-01] MEDS: CEFAZOLIN 2 GM in Sodium Chloride 0.9% 100 ML IVPB SCH ×2 (16:58→22:49)
[2021-11-01] MEDS: hydrALAZINE 20 MG/ML VIAL SLOW IVP PRN (17:01)
[2021-11-02] MEDS: HYDROcodone/Acetaminophen 7.5/325 mg Tablet PO PRN (00:43)
[2021-11-02 03:41] LABS: #Eosinphils 0.1 thou/uL (0.0-0.7); #Lymphocytes 0.9 thou/uL (1.20-3.40); #Monocytes 1.2 thou/uL (0.11-0.59); #Neutrophils 16.7 thou/uL (1.40-6.50); %Basophils 0.1 % (0.0-1.0); %Eosinophils 0.3 % (0.0-10.0); %Monocytes 6.1 % (0.0-10.0); %Neutrophils 88.6 % (42.0-75.0); Hemoglobin 12.2 g/dL (12.0-16.0); Mean Corpuscular HGB CONC 32.2 g/dL (32.0-36.0); Mean Corpuscular Hemoglobin 30.4 pg (27.0-31.0); Mean Corpuscular Volume 94.7 fL (78.0-98.0); Mean Platelet Volume 8.6 fL (7.4-10.4); Platelet Count 196 thou/uL (130-400); RBC Distribution Width 13.4 % (11.5-14.5); White Blood Cell (WBC) Count 18.9 thou/uL (4.8-10.8)
[2021-11-02 04:06] LABS: Anion Gap 16 mmol/L (10-20); BUN (Urea Nitrogen) 27 mg/dL (9.8-20.1); Calc. Creatinine Clearance 54 mL/min (70-130); Calcium 8.4 mg/dL (7.8-10.44); Carbon Dioxide 20 mmol/L (23-31); Chloride 112 mmol/L (98-107); Estimated GFR 50; Glucose 129 mg/dL (83-110); Potassium 4.5 mmol/L (3.5-5.1); Sodium 143 mmol/L (136-145)
[2021-11-02] MEDS: CEFAZOLIN 2 GM in Sodium Chloride 0.9% 100 ML IVPB SCH (05:39)
[2021-11-02] MEDS: Ciprofloxacin 500 MG TAB PO SCH ×2 (05:39→21:45)
[2021-11-02] MEDS: Dexamethasone 4 MG TAB PO SCH ×4 (05:39→21:46)
[2021-11-02] MEDS ORDERED: Lorazepam (BATCHED) 2 MG/ML SYR SLOW IVP PRN (07:13)
[2021-11-02] MEDS: hydrALAZINE 20 MG/ML VIAL SLOW IVP PRN (11:52)
[2021-11-02 22:08] VITALS: BMI 30.4
[2021-11-03] MEDS: Dexamethasone 4 MG TAB PO SCH ×4 (02:13→20:52)
[2021-11-03] MEDS: Ciprofloxacin 500 MG TAB PO SCH ×2 (05:52→20:52)
[2021-11-03] MEDS: Sodium Chloride 0.9% 1,000 ML IV SCH ×2 (08:27→21:07)
[2021-11-03 08:40] LABS: Hemoglobin 12.1 g/dL (12.0-16.0); Mean Corpuscular HGB CONC 31.6 g/dL (32.0-36.0); Mean Corpuscular Hemoglobin 29.7 pg (27.0-31.0); Mean Corpuscular Volume 93.8 fL (78.0-98.0); Mean Platelet Volume 8.9 fL (7.4-10.4); Platelet Count 179 thou/uL (130-400); RBC Distribution Width 13.9 % (11.5-14.5); Red Blood Cell (RBC) Count 4.09 mill/uL (4.20-5.40); White Blood Cell (WBC) Count 20.5 thou/uL (4.8-10.8)
[2021-11-03 08:54] LABS: Anion Gap 12 mmol/L (10-20); BUN (Urea Nitrogen) 25 mg/dL (9.8-20.1); Calc. Creatinine Clearance 67 mL/min (70-130); Calcium 8.4 mg/dL (7.8-10.44); Carbon Dioxide 25 mmol/L (23-31); Chloride 106 mmol/L (98-107); Estimated GFR 63; Glucose 155 mg/dL (83-110); Potassium 3.9 mmol/L (3.5-5.1); Sodium 139 mmol/L (136-145)
[2021-11-03 09:21] LABS: Band 3 % (5-11); Lymphocytes 2 % (21-51); MDiff Complete? YES; Monocytes 7 % (0-10); Neutrophil 88 % (42-75); Platelet Morphology Comment Appears Adequate; RBC Morphology Normal
[2021-11-04] MEDS: Dexamethasone 4 MG TAB PO SCH (02:06)
[2021-11-04 05:28] LABS: #Lymphocytes 0.8 thou/uL (1.20-3.40); #Monocytes 1.2 thou/uL (0.11-0.59); #Neutrophils 16.6 thou/uL (1.40-6.50); %Basophils 0.1 % (0.0-1.0); %Eosinophils 0.2 % (0.0-10.0); %Lymphocytes 4.1 % (21.0-51.0); %Monocytes 6.6 % (0.0-10.0); Hemoglobin 11.7 g/dL (12.0-16.0); Mean Corpuscular HGB CONC 31.6 g/dL (32.0-36.0); Mean Corpuscular Hemoglobin 29.7 pg (27.0-31.0); Mean Corpuscular Volume 94.1 fL (78.0-98.0); Mean Platelet Volume 8.8 fL (7.4-10.4); Platelet Count 187 thou/uL (130-400); RBC Distribution Width 13.8 % (11.5-14.5); Red Blood Cell (RBC) Count 3.94 mill/uL (4.20-5.40); White Blood Cell (WBC) Count 18.7 thou/uL (4.8-10.8)
[2021-11-04] MEDS: Ciprofloxacin 500 MG TAB PO SCH (05:52)
[2021-11-04] MEDS: Sodium Chloride 0.9% 1,000 ML IV SCH (05:52)
[2021-11-04 05:54] LABS: Anion Gap 16 mmol/L (10-20); BUN (Urea Nitrogen) 26 mg/dL (9.8-20.1); Calc. Creatinine Clearance 62 mL/min (70-130); Calcium 8.4 mg/dL (7.8-10.44); Carbon Dioxide 21 mmol/L (23-31); Chloride 106 mmol/L (98-107); Estimated GFR 57; Glucose 173 mg/dL (83-110); Potassium 3.8 mmol/L (3.5-5.1); Sodium 139 mmol/L (136-145)
[2021-11-04] MEDS ORDERED: Dexamethasone 1 MG TAB PO SCH (08:00)
[2021-11-04 11:52] VITALS: BP 142/70; TEMP 97.7
[2021-11-06] MEDS ORDERED: Dexamethasone 1 MG TAB PO SCH (08:00)
[2021-11-08] MEDS ORDERED: Dexamethasone 1 MG TAB PO SCH (08:00)
== END 2021-11-04 13:51 | DRG 25 ==
LOC: ERS 20:04 → MSONC 21:59 → OBSVTOIN 10-28 15:31 → CCU 11-01 08:24 → NEURO 11-02 21:26
PROVIDERS: ADMIT Student in an Organized Health Care Education/Training Program; ATTEND Internal Medicine
PROC: 3E03329 Introduction of Other Anti-infective into Peripheral Vein, Percutaneous Approach (ICD-10-PCS; 2021-10-28)
PROC: 00B00ZZ Excision of Brain, Open Approach (ICD-10-PCS; principal; 2021-11-01)
DX: D32.0 Benign neoplasm of cerebral meninges (principal); A41.9 Sepsis, unspecified organism; G93.6 Cerebral edema; G93.5 Compression of brain; N17.9 Acute kidney failure, unspecified; N30.00 Acute cystitis without hematuria; I31.3 Pericardial effusion (noninflammatory); Z20.822 Contact with and (suspected) exposure to COVID-19; I10 Essential (primary) hypertension; N28.1 Cyst of kidney, acquired; E78.00 Pure hypercholesterolemia, unspecified; Z87.440 Personal history of urinary (tract) infections; Z79.82 Long term (current) use of aspirin; Z90.710 Acquired absence of both cervix and uterus; Z87.891 Personal history of nicotine dependence; Z79.899 Other long term (current) drug therapy; I25.2 Old myocardial infarction
CPT/HCPCS: 36415; 51701; 70450; 70553; 71045; 78452; 80048; 80053; 81003; 81015; 83605; 83880; 84484; 85025; 85610; 85730; 87040; 87086; 88307; 88341; 88342; 88360; 93005; 93017; 93306; 93970; 96361; 96365; 96367; 96372; 96375; 96376; A9500; C1713; G0378; J0360; J0690; J1100; J1650; J1953; J2370; J2405; J2543; J2704; J2785; J3010; J3370; J3490; J7050; J8540; U0002; U0003; U0005

== ENCOUNTER 2022-05-04 08:59 | Outpatient (CLI) | payer MEDICARE ==
[~2022-05-04 08:59] MED LIST: Magnevist 469MG/ML 20 ML VIAL ONE
== END 2022-05-04 09:00 | disposition home or self-care (01) ==
LOC: MRI 08:59
PROVIDERS: ATTEND Surgery
DX: D33.0 Benign neoplasm of brain, supratentorial (principal); M79.9 Soft tissue disorder, unspecified; Z98.890 Other specified postprocedural states
CPT/HCPCS: 70553; A9579

== ENCOUNTER 2022-10-12 12:07 | Outpatient (CLI) | payer MEDICARE | END 2022-10-12 12:08 | disposition home or self-care (01) | LOC: BICULT 12:07 | PROVIDERS: ATTEND Urology | DX: Q61.3 Polycystic kidney, unspecified (principal); N20.0 Calculus of kidney; Q61.02 Congenital multiple renal cysts | CPT/HCPCS: 74018; 76770 ==

== ENCOUNTER 2023-10-19 14:13 | Inpatient (IN) | payer MEDICARE ==
[2023-10-19 14:56] LABS: #Basophils 0.08 10x3/uL (0.0-0.2); %Basophils 0.6 % (0.0-1.0); %Eosinophils 2.8 % (0.0-10.0); %Lymphocytes 15.4 % (21.0-51.0); %Monocytes 10.6 % (0.0-10.0); %Neutrophils 70.2 % (42.0-75.0); Hematocrit 47.7 % (36.0-47.0); Hemoglobin 15.4 g/dL (12.0-16.0); Mean Corpuscular HGB CONC 32.3 g/dL (32.0-36.0); Mean Corpuscular Hemoglobin 28.9 pg (27.0-31.0); Mean Corpuscular Volume 89.5 fL (78.0-98.0); Mean Platelet Volume 10.9 fL (7.4-10.4); Platelet Count 250 10x3/uL (130-400); RBC Distribution Width 14.7 % (11.5-14.5); Red Blood Cell (RBC) Count 5.33 mill/uL (4.20-5.40)
[2023-10-19 15:09] LABS: ALT (SGPT) 21 U/L (8-55); AST (SGOT) 22 U/L (5-34); Albumin 3.8 g/dL (3.4-4.8); Alkaline Phosphatase 70 U/L (40-110); Anion Gap 17 mmol/L (10-20); BUN (Urea Nitrogen) 29 mg/dL (9.8-20.1); Bilirubin, Total 0.8 mg/dL (0.2-1.2); Calc. Creatinine Clearance 0 mL/min (70-130); Calcium 9.7 mg/dL (7.8-10.44); Carbon Dioxide 24 mmol/L (23-31); Chloride 98 mmol/L (98-107); Estimated GFR 30; Globulin 3.5 g/dL (2.4-3.5); Glucose 125 mg/dL (83-110); Lipase 16 U/L (8-78); Magnesium 1.7 mg/dL (1.6-2.6); Potassium 3.4 mmol/L (3.5-5.1); Protein, Total 7.3 g/dL (5.8-8.1); Sodium 136 mmol/L (136-145)
[2023-10-19] MEDS ORDERED: Iopamidol-370 76% 500 ML MDV (1 ML CHARGE) ONE (15:41)
[2023-10-19 17:14] LABS: Bacteria/HPF 4+ HPF (None Seen); Bilirubin Negative (Negative); Blood, Urine 2+ (Negative); CAUTI Indications for Culture Pelvic or flank pain; Clarity Extra Turbid (Clear); Glucose, Urine (Dipstick) Normal (Negative); Ketone, Urine Negative (Negative); Leukocyte 500 Leu/uL (Negative); Nitrite 1+ (Negative); Protein, Urine (Dipstick) 20 mg/dL (Neg-Trace); Specific Gravity, Urine 1.026 (1.002-1.036); Squamous Epithelial 21-50 HPF (0-3); Urobilinogen Normal mg/dL (Less than 2); WBC/HPF Greater than 50 HPF (0-3)
[2023-10-19 17:18] LABS: Urine Culture Reflex Yes Yes
[2023-10-19] MEDS ORDERED: Piperacillin/Tazobactam 4.5 GM VIAL ONE (18:16)
[2023-10-19] MEDS ORDERED: Ipratropium/Albuterol 3 ML NEB NEB PRN (19:08)
[2023-10-19] MEDS ORDERED: Sodium Chloride 0.9% 1,000 ML IV SCH (19:15)
[2023-10-19] MEDS ORDERED: Acetaminophen 325 MG TAB PO SCH (20:00)
[2023-10-19] MEDS: NS 0.9% w/ 20 MEQ KCL 1,000 ML IV SCH (20:02)
[2023-10-19] MEDS: Sodium Chloride 0.9% 1,000 ML IV SCH (23:53)
[2023-10-19] MEDS: LevoFLOXacin 500 mg/D5W 500 MG in Premix 1 BAG IVPB SCH (23:53)
[2023-10-20] MEDS: Famotidine/PF 20 mg/2ml Vial SLOW IVP SCH (00:06)
[2023-10-20] MEDS: Magnesium 2 GM/50 ML(in water) 2 GM in Premix 1 BAG IVPB SCH (00:07)
[2023-10-20 06:17] LABS: Anion Gap 13 mmol/L (10-20); BUN (Urea Nitrogen) 25 mg/dL (9.8-20.1); Calc. Creatinine Clearance 52 mL/min (70-130); Calcium 8.2 mg/dL (7.8-10.44); Carbon Dioxide 22 mmol/L (23-31); Chloride 103 mmol/L (98-107); Estimated GFR 42; Glucose 111 mg/dL (83-110); Sodium 135 mmol/L (136-145)
[2023-10-20 06:33] LABS: INR-International Normal Ratio 1.1; Prothrombin Time 14.3 sec (12.0-14.7)
[2023-10-20 06:34] LABS: PTT 30.2 sec (22.9-36.1)
[2023-10-20 06:45] LABS: #Basophils 0.05 10x3/uL (0.0-0.2); %Basophils 0.5 % (0.0-1.0); %Lymphocytes 11.8 % (21.0-51.0); %Monocytes 10.6 % (0.0-10.0); %Neutrophils 73.6 % (42.0-75.0); Hematocrit 40.8 % (36.0-47.0); Hemoglobin 13.3 g/dL (12.0-16.0); Mean Corpuscular HGB CONC 32.6 g/dL (32.0-36.0); Mean Corpuscular Hemoglobin 28.7 pg (27.0-31.0); Mean Corpuscular Volume 87.9 fL (78.0-98.0); Mean Platelet Volume 11.3 fL (7.4-10.4); Platelet Count 185 10x3/uL (130-400); RBC Distribution Width 14.6 % (11.5-14.5); Red Blood Cell (RBC) Count 4.64 mill/uL (4.20-5.40)
[2023-10-20] MEDS ORDERED: PROPOFOL 20 ML ONE (08:29)
[2023-10-20] MEDS ORDERED: Lidocaine 1% PF 5 ML VIAL ONE (08:29)
[2023-10-20] MEDS ORDERED: fentaNYL PF 100 MCG/2 ML SYRINGE ONE (08:29)
[2023-10-20] MEDS ORDERED: Rocuronium Bromide 10 MG/ML (10ML VIAL) ONE (08:29)
[2023-10-20] MEDS ORDERED: PHENYLEPHRINE-NS 100 MCG/ML 10 ML SYRINGE ONE (09:43)
[2023-10-20] MEDS ORDERED: SUCCINYLCHOLINE/SOD CL,ISO/PF 200 MG/10 ML SYRINGE FS ONE (09:43)
[2023-10-20] MEDS ORDERED: Ropivacaine 0.5% HCl/PF (150 MG/30 ML VIAL) ONE (09:49)
[2023-10-20] MEDS ORDERED: Bupivacaine PF 0.5% 30 ML VIAL ONE (09:49)
[2023-10-20] MEDS ORDERED: Ketamine In 0.9 % NaCl 50 MG/5 ML SYRINGE ONE (10:20)
[2023-10-20] MEDS ORDERED: Dexamethasone 20 MG/5 ML VIAL ONE (11:57)
[2023-10-20] MEDS ORDERED: Ondansetron PF 4 MG/2 ML Vial ONE (11:57)
[2023-10-20] MEDS ORDERED: HYDROmorphone 2 MG/ML VIAL ONE (11:58)
[2023-10-20] MEDS ORDERED: SUGAMMADEX SODIUM 200 MG/2 ML VIAL ONE (13:03)
[2023-10-20] MEDS: Potassium Chloride 20 MEQ in Premix 1 BAG IVPB SCH ×2 (17:48→23:57)
[2023-10-20] MEDS: NS 0.9% w/ 40 MEQ KCL 1,000 ML IV SCH (17:51)
[2023-10-20] MEDS: Trospium 20 MG TAB PO SCH (23:57)
[2023-10-20] MEDS: Morphine 4 MG/ML VIAL SLOW IVP PRN (23:59)
[2023-10-21] MEDS: LevoFLOXacin 250 mg/D5W 250 MG in Premix 1 BAG IVPB SCH (00:02)
[2023-10-21 08:10] LABS: #Basophils Less than 0.03 10x3/uL (0.0-0.2); #Eosinphils Less than 0.03 10x3/uL (0.0-0.7); %Basophils 0.1 % (0.0-1.0); %Lymphocytes 4.5 % (21.0-51.0); Hematocrit 42.4 % (36.0-47.0); Hemoglobin 13.7 g/dL (12.0-16.0); Mean Corpuscular HGB CONC 32.3 g/dL (32.0-36.0); Mean Corpuscular Hemoglobin 29.4 pg (27.0-31.0); Mean Platelet Volume 10.8 fL (7.4-10.4); Platelet Count 224 10x3/uL (130-400); Red Blood Cell (RBC) Count 4.66 mill/uL (4.20-5.40)
[2023-10-21 08:26] LABS: Phosphorus 3.6 mg/dL (2.3-4.7)
[2023-10-21] MEDS: Fluticasone Propionate Nasal Spray 16 gm Bottle NASAL SCH (09:13)
[2023-10-21] MEDS: Sertraline 25 MG TAB PO SCH (09:16)
[2023-10-21] MEDS: Pantoprazole 40 MG VIAL IVP SCH (09:17)
[2023-10-21] MEDS: Morphine 4 MG/ML VIAL SLOW IVP PRN (09:17)
[2023-10-21 10:24] LABS: Carbon Dioxide 20 mmol/L (23-31); Chloride 109 mmol/L (98-107); Potassium 4.7 mmol/L (3.5-5.1); Sodium 138 mmol/L (136-145)
[2023-10-21 10:27] LABS: Anion Gap 14 mmol/L (10-20); BUN (Urea Nitrogen) 23 mg/dL (9.8-20.1); Calc. Creatinine Clearance 50 mL/min (70-130); Calcium 8.4 mg/dL (7.6-10.4); Estimated GFR 40; Glucose 140 mg/dL (83-110); Magnesium 1.8 mg/dL (1.6-2.6)
[2023-10-21] MEDS: Lactated Ringer's 1,000 ML IV SCH (14:52)
[2023-10-21] MEDS: Donepezil HCl 10 MG TAB PO SCH (20:21)
[2023-10-22 07:23] LABS: #Basophils 0.04 10x3/uL (0.0-0.2); %Basophils 0.2 % (0.0-1.0); %Eosinophils 0.5 % (0.0-10.0); %Lymphocytes 5.2 % (21.0-51.0); %Monocytes 9.2 % (0.0-10.0); %Neutrophils 84.4 % (42.0-75.0); Hematocrit 36.5 % (36.0-47.0); Hemoglobin 11.6 g/dL (12.0-16.0); Mean Corpuscular HGB CONC 31.8 g/dL (32.0-36.0); Mean Corpuscular Hemoglobin 29.5 pg (27.0-31.0); Mean Corpuscular Volume 92.9 fL (78.0-98.0); Mean Platelet Volume 10.7 fL (7.4-10.4); Platelet Count 175 10x3/uL (130-400); Red Blood Cell (RBC) Count 3.93 mill/uL (4.20-5.40)
[2023-10-22 08:03] LABS: Anion Gap 14 mmol/L (10-20); BUN (Urea Nitrogen) 24 mg/dL (9.8-20.1); Calc. Creatinine Clearance 54 mL/min (70-130); Calcium 8.1 mg/dL (7.8-10.44); Carbon Dioxide 23 mmol/L (23-31); Chloride 107 mmol/L (98-107); Estimated GFR 44; Glucose 122 mg/dL (83-110); Potassium 3.6 mmol/L (3.5-5.1); Sodium 140 mmol/L (136-145)
[2023-10-22] MEDS ORDERED: Pantoprazole DR 40 MG TAB PO SCH (09:00)
[2023-10-22] MEDS: Pantoprazole 40 MG VIAL IVP SCH (09:56)
[2023-10-22] MEDS: cefTRIAXone\\ROCEPHIN 1 GM in Sodium Chloride 0.9% 100 ML IVPB SCH (21:01)
[2023-10-23 05:19] LABS: #Basophils 0.04 10x3/uL (0.0-0.2); %Basophils 0.3 % (0.0-1.0); %Eosinophils 2.4 % (0.0-10.0); %Lymphocytes 6.5 % (21.0-51.0); %Monocytes 8.3 % (0.0-10.0); %Neutrophils 81.9 % (42.0-75.0); Hemoglobin 11.1 g/dL (12.0-16.0); Mean Corpuscular HGB CONC 31.7 g/dL (32.0-36.0); Mean Corpuscular Hemoglobin 28.7 pg (27.0-31.0); Mean Corpuscular Volume 90.4 fL (78.0-98.0); Mean Platelet Volume 10.3 fL (7.4-10.4); Platelet Count 167 10x3/uL (130-400); RBC Distribution Width 14.8 % (11.5-14.5); Red Blood Cell (RBC) Count 3.87 mill/uL (4.20-5.40)
[2023-10-23 05:37] LABS: Anion Gap 13 mmol/L (10-20); BUN (Urea Nitrogen) 21 mg/dL (9.8-20.1); Calc. Creatinine Clearance 65 mL/min (70-130); Calcium 8.3 mg/dL (7.8-10.44); Carbon Dioxide 25 mmol/L (23-31); Chloride 103 mmol/L (98-107); Estimated GFR 55; Glucose 109 mg/dL (83-110); Potassium 3.3 mmol/L (3.5-5.1); Sodium 138 mmol/L (136-145)
[2023-10-23] MEDS ORDERED: Electrolyte Replacement Protocol FS PRN (07:30)
[2023-10-23] MEDS: Ondansetron PF 4 MG/2 ML Vial IVP PRN (09:16)
[2023-10-23] MEDS: Potassium Chloride 20 MEQ TAB PO SCH (10:34)
[2023-10-23] MEDS: Heparin 5,000 UNITS/ML VIAL SC SCH (10:35)
[2023-10-24 05:47] LABS: #Basophils 0.03 10x3/uL (0.0-0.2); %Basophils 0.3 % (0.0-1.0); %Eosinophils 4.5 % (0.0-10.0); %Lymphocytes 8.7 % (21.0-51.0); %Monocytes 10.4 % (0.0-10.0); %Neutrophils 75.4 % (42.0-75.0); Hematocrit 33.9 % (36.0-47.0); Hemoglobin 10.7 g/dL (12.0-16.0); Mean Corpuscular HGB CONC 31.6 g/dL (32.0-36.0); Mean Corpuscular Hemoglobin 29.1 pg (27.0-31.0); Mean Corpuscular Volume 92.1 fL (78.0-98.0); Mean Platelet Volume 10.4 fL (7.4-10.4); Platelet Count 195 10x3/uL (130-400); RBC Distribution Width 14.3 % (11.5-14.5); Red Blood Cell (RBC) Count 3.68 mill/uL (4.20-5.40)
[2023-10-24 06:18] LABS: Anion Gap 12 mmol/L (10-20); BUN (Urea Nitrogen) 19 mg/dL (9.8-20.1); Calc. Creatinine Clearance 77 mL/min (70-130); Calcium 8.6 mg/dL (7.8-10.44); Carbon Dioxide 27 mmol/L (23-31); Chloride 102 mmol/L (98-107); Estimated GFR 67; Glucose 101 mg/dL (83-110); Potassium 3.2 mmol/L (3.5-5.1); Sodium 138 mmol/L (136-145)
[2023-10-24] MEDS: Potassium Chloride 20 MEQ in Premix 1 BAG IVPB SCH (08:35)
[2023-10-24] MEDS ORDERED: MD-Gastroview 120 ML BOT ONE (11:07)
[2023-10-24] MEDS: TETANUS, DIPHTHERIA TOX,ADULT (TDVAX) 0.5 ML VIAL IM ONE (12:21)
[2023-10-24] MEDS: Lorazepam 2 MG/ML VIAL SLOW IVP SCH (18:38)
[2023-10-25 05:19] LABS: #Basophils 0.06 10x3/uL (0.0-0.2); %Basophils 0.6 % (0.0-1.0); %Eosinophils 5.6 % (0.0-10.0); %Lymphocytes 8.2 % (21.0-51.0); %Monocytes 11.8 % (0.0-10.0); Hematocrit 34.4 % (36.0-47.0); Hemoglobin 10.8 g/dL (12.0-16.0); Mean Corpuscular HGB CONC 31.4 g/dL (32.0-36.0); Mean Corpuscular Volume 92.5 fL (78.0-98.0); Mean Platelet Volume 10.6 fL (7.4-10.4); Platelet Count 206 10x3/uL (130-400); RBC Distribution Width 14.1 % (11.5-14.5); Red Blood Cell (RBC) Count 3.72 mill/uL (4.20-5.40)
[2023-10-25 05:50] LABS: Anion Gap 10 mmol/L (10-20); BUN (Urea Nitrogen) 19 mg/dL (9.8-20.1); Calc. Creatinine Clearance 77 mL/min (70-130); Calcium 8.6 mg/dL (7.8-10.44); Carbon Dioxide 30 mmol/L (23-31); Chloride 103 mmol/L (98-107); Estimated GFR 68; Glucose 94 mg/dL (83-110); Magnesium 1.6 mg/dL (1.6-2.6); Phosphorus 2.7 mg/dL (2.3-4.7); Potassium 3.4 mmol/L (3.5-5.1); Sodium 140 mmol/L (136-145)
[2023-10-25] MEDS: Magnesium 2 GM/50 ML(in water) 2 GM in Premix 1 BAG IVPB SCH (10:40)
[2023-10-25] MEDS: Potassium Chloride 20 MEQ TAB PO SCH (10:40)
[2023-10-25] MEDS: Potassium Phosphate 30 MMOL in Sodium Chloride 0.9% 250 ML 250 ML IVPB SCH (11:36)
[2023-10-25 13:46] LABS: Potassium 3.6 mmol/L (3.5-5.1)
[2023-10-26 06:29] LABS: Magnesium 1.6 mg/dL (1.6-2.6)
[2023-10-26] MEDS: Magnesium 2 GM/50 ML(in water) 2 GM in Premix 1 BAG IVPB SCH (08:46)
[2023-10-26] MEDS: Acetaminophen 500 MG TAB PO PRN (20:59)
[2023-10-27 08:52] LABS: #Basophils 0.03 10x3/uL (0.0-0.2); %Basophils 0.3 % (0.0-1.0); %Eosinophils 8.2 % (0.0-10.0); %Monocytes 9.1 % (0.0-10.0); %Neutrophils 73.1 % (42.0-75.0); Hematocrit 37.9 % (36.0-47.0); Hemoglobin 12.2 g/dL (12.0-16.0); Mean Corpuscular HGB CONC 32.2 g/dL (32.0-36.0); Mean Platelet Volume 10.3 fL (7.4-10.4); Platelet Count 238 10x3/uL (130-400); RBC Distribution Width 14.1 % (11.5-14.5); Red Blood Cell (RBC) Count 4.21 mill/uL (4.20-5.40)
[2023-10-27 09:08] LABS: Anion Gap 15 mmol/L (10-20); BUN (Urea Nitrogen) 10 mg/dL (9.8-20.1); Calc. Creatinine Clearance 40 mL/min (70-130); Calcium 8.9 mg/dL (7.8-10.44); Carbon Dioxide 28 mmol/L (23-31); Chloride 104 mmol/L (98-107); Estimated GFR 74; Glucose 115 mg/dL (83-110); Potassium 3.7 mmol/L (3.5-5.1); Sodium 143 mmol/L (136-145)
[2023-10-27] MEDS: Pantoprazole DR 40 MG TAB PO SCH (09:39)
[2023-10-27] MEDS ORDERED: Amlodipine 10 MG TAB PO SCH (10:30)
[2023-10-27] MEDS: Amlodipine 5 MG TAB PO SCH (11:23)
[2023-10-27 17:13] VITALS: BMI 17.8
[2023-10-28 06:02] VITALS: BMI 39.0
[2023-10-28 08:32] VITALS: TEMP 98.5
[2023-10-28] MEDS: Furosemide 20 MG TAB PO SCH (08:58)
[2023-10-28] MEDS: Multivit, Chewable SF 1 TAB PO SCH (08:58)
[2023-10-28] MEDS: Atorvastatin Calcium 40 MG TAB PO SCH (08:59)
[2023-10-28] MEDS: Amlodipine 5 MG TAB PO SCH (08:59)
[2023-10-28 12:08] VITALS: BP 158/81
== END 2023-10-28 14:30 | DRG 336 ==
LOC: ERS 14:13 → SURG B 19:11
PROVIDERS: ADMIT Specialist; ATTEND Specialist
PROC: 0WUF0JZ Supplement Abdominal Wall with Synthetic Substitute, Open Approach (ICD-10-PCS; principal; 2023-10-20)
PROC: 0DNB0ZZ Release Ileum, Open Approach (ICD-10-PCS; 2023-10-20)
DX: K43.6 Other and unspecified ventral hernia with obstruction, without gangrene (principal); K56.7 Ileus, unspecified; N39.0 Urinary tract infection, site not specified; Q61.3 Polycystic kidney, unspecified; F03.90 Unspecified dementia, unspecified severity, without behavioral disturbance, psychotic disturbance, mood disturbance, and anxiety; I12.9 Hypertensive chronic kidney disease with stage 1 through stage 4 chronic kidney disease, or unspecified chronic kidney disease; N18.31 Chronic kidney disease, stage 3a; E87.6 Hypokalemia; Z90.710 Acquired absence of both cervix and uterus; Z79.899 Other long term (current) drug therapy
CPT/HCPCS: 36415; 71045; 74018; 74019; 74177; 80048; 80053; 81001; 83605; 83690; 83735; 83880; 84100; 85025; 85610; 85730; 86850; 86900; 86901; 87040; 87071; 87077; 87086; 87186; 96365; A4314; C1751; C1781; C9113; J0665; J0696; J1100; J1170; J1644; J1956; J2060; J2270; J2405; J2543; J2704; J2795; J3475; J3480; J3490; J7050; J7120; Q9963; Q9967; S0028